=== PATIENT | male | born 1975 | race Hispanic/Latino ===

== ENCOUNTER 2020-12-28 12:19 | Emergency (ER) | payer SELFPAY ==
[~2020-12-28] VITALS: Ht 165.1 cm; Wt 80.0 kg
[~2020-12-28 12:19] MED LIST: EYE GTTS; LORTAB 5 OR
[2020-12-28] MEDS ORDERED: KEFLEX500 MG PO (15:26)
[2020-12-28 15:43] VITALS: BP 107/74
== END 2020-12-28 15:43 | disposition home or self-care (01) | DRG 605 ==
LOC: ED 12:19
PROC: 0HQGXZZ Repair Left Hand Skin, External Approach (ICD-10-PCS; principal; 2020-12-28)
DX: S61.213A Laceration without foreign body of left middle finger without damage to nail, initial encounter (principal); W27.0XXA Contact with workbench tool, initial encounter; Y93.H3 Activity, building and construction; Y92.009 Unspecified place in unspecified non-institutional (private) residence as the place of occurrence of the external cause

== ENCOUNTER 2023-03-02 15:27 | Emergency (ER) | payer OTHER ==
[~2023-03-02] VITALS: Ht 165.1 cm; Wt 73.9 kg
[~2023-03-02 15:27] MED LIST changes: +ABX; +KEFLEX500 MG PO
[2023-03-02] MEDS ORDERED: KEFLEX500 MG PO (16:38)
[2023-03-02 16:43] VITALS: BP 116/82
== END 2023-03-02 16:51 | disposition home or self-care (01) | DRG 605 ==
LOC: ED 15:27
PROC: 0HQMXZZ Repair Right Foot Skin, External Approach (ICD-10-PCS; principal; 2023-03-02)
DX: S91.311A Laceration without foreign body, right foot, initial encounter (principal); W29.8XXA Contact with other powered hand tools and household machinery, initial encounter; Y92.009 Unspecified place in unspecified non-institutional (private) residence as the place of occurrence of the external cause